=== PATIENT | male | born 1995 | race Caucasian/White ===

== ENCOUNTER 2019-07-15 15:12 | Inpatient (IN) | payer BC, OTHER ==
[~2019-07-15] VITALS: Ht 162.6 cm; Wt 108.8 kg
[2019-07-15] MEDS ORDERED: ACETAMINOPHEN 325 MG TAB PO ONE (16:00)
[2019-07-15 16:18] LABS: Basophils # (auto) 0.1 10 ^3/uL (0-0.2); Basophils % (auto) 0.5 % (0.0-2.0); Eosinophils # (auto) 0 10 ^3/uL (0-0.8); Eosinophils % (auto) 0.1 % (0.0-7.0); Hemoglobin 15.9 g/dL (13.5-17.5); Lymphocytes # (auto) 2.3 10 ^3/uL (0.4-5.4); Lymphocytes % (auto) 11.1 % (10.0-50.0); Mean Corpuscular Hemoglobin 29.1 pg (28.0-32.0); Mean Corpuscular Volume 88.2 fL (80.0-100.0); Monocytes # (auto) 1.7 10 ^3/uL (0-1.3); Monocytes % (auto) 8.1 % (0.0-12.0); Neutrophils # (auto) 16.8 10 ^3/uL (1.6-8.6); Neutrophils % (auto) 80.2 % (37.0-80.0); Platelet Count (auto) 221 10^3/uL (140-450); Red Blood Cells 5.45 10^6/uL (4.5-5.90); Red Cell Distribution Width 13.6 % (11.8-14.3)
[2019-07-15] MEDS ORDERED: cefTRIAXone 1GM/50ML D5W 50 ML IV ONE (17:15)
[2019-07-15] MEDS ORDERED: IOHEXOL 300 MG/ML 100ML BOTTLE IJ ONE (17:22)
[2019-07-15] MEDS ORDERED: AZITHROMYCIN 500MG/ 250ML 250 ML IV ONE (17:45)
[2019-07-15 17:52] LABS: Albumin 4.1 g/dL (3.4-5.0); Calcium 9.2 mg/dL (8.5-10.1); Potassium 3.6 mmol/L (3.5-5.1)
[2019-07-15 17:56] LABS: BUN/Creatinine Ratio 9.1; Bilirubin, Total 1.4 mg/dL (0.2-1.0); Total Protein 8.3 g/dL (6.4-8.2)
[2019-07-15] MEDS ORDERED: NITROGLYCERIN 0.4 MG SL TAB SL PRN (19:15)
[2019-07-15] MEDS ORDERED: ACETAMINOPHEN 500 MG TAB PO PRN ×2 (19:15)
[2019-07-15] MEDS ORDERED: ONDANSETRON HCL 4 MG/2 ML VIAL IV PRN (19:15)
[2019-07-15] MEDS ORDERED: HYDROcodone-ACET 5/325MG TAB PO PRN (19:15)
[2019-07-15] MEDS ORDERED: MORPHINE SULF INJ 2 MG/ML SYRINGE 1ML IV PRN ×2 (19:15)
[2019-07-15] MEDS: CHOLECALCIFEROL (VITD3) 1,000IU=25mCg TAB PO SCH (19:30)
[2019-07-15] MEDS: ASCORBIC ACID 1,000 MG TAB PO SCH (19:30)
[2019-07-15] MEDS: ENOXAPARIN SOD 40 MG/0.4 ML SYRINGE SC SCH (19:30)
[2019-07-15] MEDS: ZINC SULFATE 220mg CAP or TAB PO SCH (19:30)
[2019-07-15 20:30] VITALS: BP 147/91
[2019-07-15] MEDS: cefTRIAXone 1GM/50ML D5W 50 ML IV SCH (21:28)
[2019-07-15] MEDS: DOXYCYCLINE 100 MG TAB/CAP PO SCH (21:29)
[2019-07-15 22:00] VITALS: BP 142/97
[2019-07-15] MEDS ORDERED: ALBUTEROL SULF HFA 90MCG INH 200DOSE IN SCH (22:00)
[2019-07-16 04:47] VITALS: BP 118/83
[2019-07-16 08:00] VITALS: BP 124/88
[2019-07-16] MEDS: cefTRIAXone 1GM/50ML D5W 50 ML IV SCH ×2 (08:33→20:50)
[2019-07-16] MEDS: ENOXAPARIN SOD 40 MG/0.4 ML SYRINGE SC SCH (08:33)
[2019-07-16] MEDS: CHOLECALCIFEROL (VITD3) 1,000IU=25mCg TAB PO SCH (08:34)
[2019-07-16] MEDS: DOXYCYCLINE 100 MG TAB/CAP PO SCH ×2 (08:34→21:20)
[2019-07-16] MEDS: ASCORBIC ACID 1,000 MG TAB PO SCH (08:34)
[2019-07-16] MEDS: ZINC SULFATE 220mg CAP or TAB PO SCH (08:34)
[2019-07-16 12:00] VITALS: BP 127/97
[2019-07-16 12:21] LABS: Basophils # (auto) 0.1 10 ^3/uL (0-0.2); Basophils % (auto) 0.7 % (0.0-2.0); Eosinophils # (auto) 0.1 10 ^3/uL (0-0.8); Eosinophils % (auto) 0.3 % (0.0-7.0); Hematocrit 47.2 % (41.0-53.0); Lymphocytes # (auto) 2.3 10 ^3/uL (0.4-5.4); Lymphocytes % (auto) 13.7 % (10.0-50.0); Mean Corpuscular Hemoglobin 29.9 pg (28.0-32.0); Mean Corpuscular Hgb Conc. 33.8 g/dL (32.0-36.0); Mean Corpuscular Volume 88.5 fL (80.0-100.0); Monocytes # (auto) 1.7 10 ^3/uL (0-1.3); Monocytes % (auto) 9.8 % (0.0-12.0); Neutrophils # (auto) 12.8 10 ^3/uL (1.6-8.6); Neutrophils % (auto) 75.5 % (37.0-80.0); Nucleated Red Blood Cells % 0.1 %; Platelet Count (auto) 208 10^3/uL (140-450); Red Blood Cells 5.34 10^6/uL (4.5-5.90); Red Cell Distribution Width 13.6 % (11.8-14.3)
[2019-07-16 16:55] VITALS: BP 114/73
[2019-07-16 17:00] VITALS: BP 108/74
[2019-07-16 19:45] LABS: Albumin 3.3 g/dL (3.4-5.0); Calcium 8.8 mg/dL (8.5-10.1); Potassium 3.6 mmol/L (3.5-5.1)
[2019-07-16 19:48] LABS: BUN/Creatinine Ratio 14.6; Bilirubin, Total 0.5 mg/dL (0.2-1.0); Total Protein 7.5 g/dL (6.4-8.2)
[2019-07-16 21:00] VITALS: BP 101/76
[2019-07-17 05:00] VITALS: BP 101/66
[2019-07-17 08:49] LABS: Amphetamine Screen, Urine NEGATIVE (NEGATIVE); Barbiturate Scree,Urine NEGATIVE (NEGATIVE); Benzodiazephine Screen, Urine NEGATIVE (NEGATIVE); Cannabinoid Screen, Urine NEGATIVE (NEGATIVE); Cocaine Screen, Urine NEGATIVE (NEGATIVE); Opiate Scree,Urine NEGATIVE (NEGATIVE); Phencyclidine Screen, Urine NEGATIVE (NEGATIVE)
[2019-07-17 09:00] VITALS: BP 112/80
[2019-07-17] MEDS: ENOXAPARIN SOD 40 MG/0.4 ML SYRINGE SC SCH (10:00)
[2019-07-17] MEDS: cefTRIAXone 1GM/50ML D5W 50 ML IV SCH (10:00)
[2019-07-17] MEDS ORDERED: levoFLOXacin 500MG 100 ML IV SCH ×2 (11:30)
[2019-07-17] MEDS: CHOLECALCIFEROL (VITD3) 1,000IU=25mCg TAB PO SCH (12:29)
[2019-07-17] MEDS: ASCORBIC ACID 1,000 MG TAB PO SCH (12:29)
[2019-07-17] MEDS ORDERED: IPRIH IN (12:56)
[2019-07-17] MEDS ORDERED: LEVO500T21 PO (12:56)
[2019-07-17] MEDS ORDERED: ALBUAER3 IN (12:56)
[2019-07-17] MEDS ORDERED: DEXT1LIQ99 PO (12:56)
[2019-07-17 13:00] VITALS: BP 115/77
[2019-07-17 14:36] VITALS: BP 115/77
== END 2019-07-17 15:50 | disposition home health service (06) | DRG 871 ==
LOC: ER 15:12 → TELE 15:13 → TELE-EAST 20:10
PROVIDERS: ADMIT Nurse Practitioner Acute Care; ATTEND Internal Medicine
DX: A41.9 Sepsis, unspecified organism (principal); J18.9 Pneumonia, unspecified organism; N17.0 Acute kidney failure with tubular necrosis; Z68.41 Body mass index [BMI] 40.0-44.9, adult; E66.9 Obesity, unspecified; R59.0 Localized enlarged lymph nodes; J02.0 Streptococcal pharyngitis; Z03.818 Encounter for observation for suspected exposure to other biological agents ruled out; Z79.899 Other long term (current) drug therapy
CPT/HCPCS: 36415; 70491; 71045; 80053; 80307; 82728; 83605; 83615; 85025; 85379; 86141; 87040; 87804; 87880; 96365; 96367; 96372; G0378; J0696; J1956